=== PATIENT | female | born 2000 | race African-American/Black ===

== ENCOUNTER 2022-10-25 12:00 | Inpatient (IN) | payer OTHER ==
[2022-10-28] MEDS: ELECTROLYTE-148 SOLN 1,000 ML IV SCH ×2 (07:50→09:00)
[2022-10-28 08:21] VITALS: BMI 32.3
[2022-10-28] MEDS ORDERED: ACETAMINOPHEN 325 MG TABLET (FP) PO PRN (09:54)
[2022-10-28] MEDS ORDERED: ONDANSETRON 4 MG/2 ML VIAL IVPUSH PRN (09:54)
[2022-10-28] MEDS ORDERED: morphine SULFATE/PF 1 MG/2 ML (2cc Syringe - QUVA) EP ONE (09:54)
[2022-10-28] MEDS ORDERED: morphine SULFATE (PF) 1 MG/2 ML SYRINGE ONE (10:21)
[2022-10-28] MEDS ORDERED: SODIUM CHLORIDE 0.9% P/F 10 ML VIAL IJ ONE ×2 (10:22→10:50)
[2022-10-28] MEDS ORDERED: ceFAZolin SODIUM 1 GM VIAL ONE (10:22)
[2022-10-28] MEDS ORDERED: PHENYLEPHRINE HCL 10 MG/1 ML SINGLE DOSE VIAL ONE (10:50)
[2022-10-28] MEDS ORDERED: OXYTOCIN 10 UNITS/ML VIAL ONE (10:51)
[2022-10-28] MEDS ORDERED: ONDANSETRON 4 MG/2 ML VIAL ONE (11:01)
[2022-10-28] MEDS ORDERED: METOCLOPRAMIDE HCL INJECTION 10 MG/2 ML VIAL ONE (11:01)
[2022-10-28] MEDS ORDERED: CITRIC ACID/SODIUM CITRATE 30 ML UNIT-DOSE CUP PO ONE (11:15)
[2022-10-28] MEDS ORDERED: OXYTOCIN 20 UNITS in 0.9% NS 20 UNIT/1,000 ML INFUS.BAG IV ONE ×2 (13:15→13:18)
[2022-10-28] MEDS ORDERED: IBUPROFEN 800 MG/8 ML IJ IVPB PRN (19:36)
[2022-10-29] MEDS ORDERED: DIPHTH,PERTUSS(ACELL),TET 0.5 ML DISP.SYRIN IM ONE (10:00)
[2022-10-29] MEDS ORDERED: FLU VACC QS2022-23(6MOS UP)/PF 60 MCG/0.5 ML SYRINGE IM ONE (10:00)
[2022-10-29] MEDS: SIMETHICONE 80 MG TAB.CHEW (FP) PO PRN (15:56)
[2022-10-29] MEDS: IBUPROFEN 600 MG TABLET (FP) PO PRN (17:32)
[2022-10-30] MEDS: IBUPROFEN 600 MG TABLET (FP) PO PRN ×2 (07:29→18:31)
[2022-10-30] MEDS: SIMETHICONE 80 MG TAB.CHEW (FP) PO PRN ×2 (07:29→18:31)
[2022-10-30 10:52] LABS: BASO % 0.2 % (0-2.0); EOS % 0.7 % (0-4.5); HEMATOCRIT 32.4 % (32.4-45.2); HEMOGLOBIN 10.8 GM/dL (10.7-15.3); LYMPH % 9.5 % (8-40); MCH 31.1 pg (25.7-33.7); MCHC 33.2 g/dl (32.0-36.0); MEAN CELL VOLUME 93.6 fl (80-96); MEAN PLT VOLUME 9.7 fl (7.5-11.1); MONO % 8.5 % (3.8-10.2); NEUT % 81.1 % (42.8-82.8); PLATELET COUNT 172 10^3/uL (134-434); RBC 3.46 M/mm3 (3.60-5.2); RDW 17.1 % (11.6-15.6); WHITE BLOOD COUNT 8.2 K/mm3 (4.0-10.0)
[2022-10-31 10:28] VITALS: BP 120/80; PULSE 82; RESP 16; TEMP 98
== END 2022-10-31 19:30 | disposition home or self-care (01) | DRG 540 ==
LOC: JLDR 10-28 07:09 → J3W 10-28 13:40
PROVIDERS: ADMIT Obstetrics & Gynecology; ATTEND Obstetrics & Gynecology
PROC: 10D00Z1 Extraction of Products of Conception, Low, Open Approach (ICD-10-PCS; principal; 2022-10-28)
DX: O48.0 Post-term pregnancy (principal); O34.219 Maternal care for unspecified type scar from previous cesarean delivery; Z3A.40 40 weeks gestation of pregnancy; Z37.0 Single live birth
CPT/HCPCS: 36415; 80053; 85025; 85610; 85730; 86780; 86850; 86900; 86901; 88307-TC; 90715; C9803-CS; Q2036; U0003; U0005

== ENCOUNTER 2024-06-03 22:19 | Emergency (ER) | payer OTHER ==
[2024-06-03 22:22] VITALS: BP 122/72; PULSE 80; RESP 20; TEMP 98.6; BMI 30.5
== END 2024-06-03 22:52 | disposition home or self-care (01) ==
LOC: JER 22:19
DX: H61.21 Impacted cerumen, right ear (principal)
CPT/HCPCS: 99283-25